=== PATIENT | male | born 1970 | race Caucasian/White ===

== ENCOUNTER 2017-01-21 16:21 | Emergency (ER) | payer MEDICAID ==
[~2017-01-21] VITALS: Ht 180.3 cm; Wt 86.2 kg
[2017-01-21] MEDS ORDERED: ASPIRIN 81 MG TABLET CHEW ONE (16:45)
[2017-01-21] MEDS ORDERED: ASPIRIN 81 MG TABLET CHEW PO ONE (17:00)
[2017-01-21] MEDS ORDERED: SODIUM CHLORIDE 0.9% 1,000ML IVBOLUS ONE (17:00)
[2017-01-21] MEDS ORDERED: SODIUM CHLORIDE FLUSH 10ML SYR IVF ONE (17:00)
[2017-01-21 17:08] VITALS: BP 98/71
[2017-01-21 17:09] LABS: HEMATOCRIT 48.5 % (39.2-51.8); HEMOGLOBIN 16.4 g/dL (13.7-18.0); WHITE BLOOD COUNT 6.8 x10^3/uL (3.4-10)
[2017-01-21 17:19] LABS: BLOOD UREA NITROGEN 21 mg/dL (7-18)
[2017-01-21 17:24] LABS: IS PT STATUS REG ER OR PRE ER? YES
[2017-01-21] MEDS ORDERED: DILTIAZEM 5 MG/ML, 5ML ONE (18:10)
== END 2017-01-21 18:11 | disposition home or self-care (01) ==
LOC: ED 18:05
DX: R06.00 Dyspnea, unspecified (principal); R42 Dizziness and giddiness; F17.200 Nicotine dependence, unspecified, uncomplicated
CPT/HCPCS: 36415; 71010; 80048; 82040; 83735; 83880; 84484; 85025; 85379; 93005; 96360; 99285; J7030

== ENCOUNTER 2020-07-17 18:13 | Emergency (ER) | payer MEDICAID ==
[~2020-07-17] VITALS: Ht 177.8 cm; Wt 83.0 kg
--- NOTE | 2020-07-17 18:55 | NUR ---
REPORT GIVEN TO JESENIA
--- NOTE | 2020-07-17 18:56 | NUR ---
ASSUMED CARE OF PT, PT RESTING IN GURNEY, FULL ROM OF NECK, NADN AT THIS TIME, WCTM.
[2020-07-17] MEDS ORDERED: KETOROLAC 30 MG/1 ML IM ONE (19:00)
[2020-07-17] MEDS ORDERED: METHOCARBAMOL 750 MG TABLET PO ONE (19:00)
[2020-07-17] MEDS ORDERED: METHOCARBAMOL 750 MG TABLET ONE (19:16)
[2020-07-17] MEDS ORDERED: KETOROLAC 30 MG/1 ML ONE (19:16)
[2020-07-17 20:51] VITALS: BP 95/74
--- NOTE | 2020-07-17 20:51 | NUR ---
Pt agrees with and understands discharge plan, instructions, prescriptions.
== END 2020-07-17 20:52 | disposition home or self-care (01) ==
LOC: ED 20:46
DX: M54.12 Radiculopathy, cervical region (principal); M54.2 Cervicalgia; M62.830 Muscle spasm of back
CPT/HCPCS: 72050; 96372; 99283; J1885